=== PATIENT | female | born 1995 | race Caucasian/White ===

== ENCOUNTER 2019-04-26 11:53 | Outpatient (CLI) | payer OTHER ==
--- NOTE | 2019-04-26 12:56 | ULT ---
US Thyroid STANDARD: 04/26/2019 12:00 AM CLINICAL INDICATION: Thyroid nodule. COMPARISON: None. FINDINGS: Right and left thyroid lobes are normal in size and echotexture. The right thyroid lobe measures 4.9 cm and the left thyroid lobe measures 4.7cm. No solid thyroid nodules are present. Small cysts are seen in both thyroid lobes. No cervical lymphadenopathy is noted. IMPRESSION: No solid thyroid nodules identified.
== END 2019-04-26 11:54 | disposition home or self-care (01) ==
LOC: BICULT 11:53
PROVIDERS: ATTEND Internal Medicine Cardiovascular Disease
DX: E04.1 Nontoxic single thyroid nodule (principal)
CPT/HCPCS: 76536